=== PATIENT | female | born 2000 | race Caucasian/White ===

== ENCOUNTER → 2022-05-12 01:51 | Observation (INO) ==
[2022-05-12 01:12] LABS: Basophils % 0.4 %; Eosinophils # 0.1 K/mcL (0.0-0.6); Eosinophils % 0.9 %; Hematocrit 35.9 % (35.3-44.9); Hemoglobin 12.4 g/dL (11.5-15.4); Immature Granulocytes % 0.8 % (0-4); Lymphocytes # 1.5 K/mcL (0.6-4.6); Lymphocytes % 14.4 %; Mean Corpuscular HGB Conc 34.5 g/dL (31.6-35.5); Mean Corpuscular Hemoglobin 32.7 pg (28.0-33.3); Mean Corpuscular Volume 94.7 fL (83.0-100.0); Mean Platelet Volume 11.6 fL (9.4-12.4); Monocytes # 0.8 K/mcL (0.0-1.3); Monocytes % 8.1 %; Neutrophils # 7.7 K/mcL (1.6-8.9); Platelet Count 208 K/mcL (140-400); Red Blood Count 3.79 M/mcL (3.82-4.97); Red Cell Distribution Width 12.1 % (11.5-14.5); Segmented Neutrophils % 75.4 %; White Blood Count 10.2 K/mcL (4.3-11.1)
[2022-05-12 01:27] LABS: Protein/Creatinine Ratio,Urine 0.19 mg/mg (0.00-0.20)
[2022-05-12 01:35] LABS: Alanine Aminotransferase 8 Units/L (7-52); Aspartate Amino Transferase 12 Units/L (13-39); Blood Urea Nitrogen 7 mg/dL (6-20); Lactate Dehydrogenase 116 Units/L (140-271); Uric Acid 5.3 mg/dL (2.3-7.6)
[2022-05-12 01:49] LABS: BUN/Creatinine Ratio 11 (6-26)
== END | disposition home or self-care (01) ==
LOC: 1NENULAB
PROVIDERS: ADMIT Advanced Practice Midwife; ATTEND Advanced Practice Midwife

== ENCOUNTER 2022-05-18 06:00 | Inpatient (IN) ==
[2022-05-18] MEDS ORDERED: Azithromycin 500 MG in 0.9 % Sodium Chloride 250 ML IVPB PRN (06:07)
[2022-05-18] MEDS ORDERED: Ondansetron 4 MG/2 ML VIAL IVP PRN (06:07)
[2022-05-18] MEDS ORDERED: Metoclopramide 10 MG/2 ML VIAL IVP PRN (06:07)
[2022-05-18] MEDS ORDERED: Naloxone 0.4 MG/ML INJ IVP PRN (06:07)
[2022-05-18] MEDS ORDERED: *HR* Nalbuphine 10 MG/ML AMPUL IV PRN (06:07)
[2022-05-18] MEDS ORDERED: Famotidine 20 MG/2 ML VIAL IVP PRN (06:07)
[2022-05-18] MEDS ORDERED: Oxytocin 30 UNIT/503 ML BAG IVC SCH (06:15)
[2022-05-18 07:15] LABS: Basophils % 0.2 %; Eosinophils # 0.1 K/mcL (0.0-0.6); Eosinophils % 1.1 %; Hematocrit 34.7 % (35.3-44.9); Hemoglobin 12.2 g/dL (11.5-15.4); Immature Granulocytes % 0.5 % (0-4); Lymphocytes # 1.7 K/mcL (0.6-4.6); Lymphocytes % 16.3 %; Mean Corpuscular HGB Conc 35.2 g/dL (31.6-35.5); Mean Corpuscular Hemoglobin 33.6 pg (28.0-33.3); Mean Corpuscular Volume 95.6 fL (83.0-100.0); Mean Platelet Volume 12.2 fL (9.4-12.4); Monocytes # 0.7 K/mcL (0.0-1.3); Monocytes % 7.1 %; Neutrophils # 7.6 K/mcL (1.6-8.9); Platelet Count 218 K/mcL (140-400); Red Blood Count 3.63 M/mcL (3.82-4.97); Red Cell Distribution Width 12.1 % (11.5-14.5); Segmented Neutrophils % 74.8 %; White Blood Count 10.1 K/mcL (4.3-11.1)
[2022-05-18] MEDS ORDERED: EPHEDrine 50 MG/ML VIAL IVP PRN (07:42)
[2022-05-18] MEDS ORDERED: *HR* FentaNYL (PF) 100 MCG/2 ML VIAL EP ONE (07:42)
[2022-05-18] MEDS ORDERED: Ropivacaine/PF 0.2% 20 ML VIAL EP ONE (07:42)
[2022-05-18] MEDS ORDERED: Epidural Premix (fent/bupiv) 110 ML EP SCH (07:45)
[2022-05-18] MEDS: Ringers Solution, Lactated 1,000 ML IVC SCH ×2 (07:47→09:09)
[2022-05-18] MEDS ORDERED: Ropivacaine/PF 0.2% 20 ML VIAL ONE (08:11)
[2022-05-18] MEDS ORDERED: *HR* FentaNYL (PF) 100 MCG/2 ML VIAL ONE (08:11)
[2022-05-18] MEDS ORDERED: Nicotine 21 MG PATCH.TD24 TD SCH (09:00)
[2022-05-18 12:06] LABS: Amphetamine Screen,Urine Negative ng/mL (Cutoff=1000); Barbiturate Screen,Urine Negative ng/mL (Cutoff=200)
[2022-05-18 12:07] LABS: Benzodiazepines Screen,Urine Negative ng/mL (Cutoff=300); Cannabinoid Screen,Urine Positive ng/mL (Cutoff = 50); Cocaine Screen,Urine Negative ng/mL (Cutoff= 300); Opiate Screen,Urine Negative ng/mL (Cutoff=300); Phencyclidine Screen,Urine Negative ng/mL (Cutoff=25)
[2022-05-18] MEDS ORDERED: OXYTOCIN/RINGERS LACTATE 10 UNIT/166.6 ML BAG IVC ONE (18:17)
[2022-05-18] MEDS ORDERED: Lanolin 7 G OINT...G. TP PRN (18:17)
[2022-05-18] MEDS ORDERED: hydrOXYzine pamoate 25 MG CAPSULE PO PRN (18:17)
[2022-05-18] MEDS ORDERED: Ondansetron ODT 4 MG TAB.RAPDIS SL PRN (18:17)
[2022-05-18] MEDS ORDERED: Benzocaine/Menthol 56 GM AEROSOL SPRAY TP PRN (18:17)
[2022-05-18] MEDS ORDERED: Measles/Mumps/Rubella Vacc 0.5 ML VIAL SQ PRN (18:17)
[2022-05-18] MEDS ORDERED: Rho Immune Globulin 1,500 UNIT SYRINGE IM PRN (18:17)
[2022-05-18] MEDS: Acetaminophen 325 MG TABLET PO SCH (18:34)
[2022-05-18] MEDS: *HR* Buprenorphine HCl 8 MG TAB.SUBL SL SCH (20:48)
[2022-05-18] MEDS: Ibuprofen 600 MG TABLET PO SCH (20:49)
[2022-05-18] MEDS: traZODone 50 MG TABLET PO SCH (20:53)
[2022-05-19] MEDS: Nicotine 21 MG PATCH.TD24 TD SCH ×2 (00:49→21:26)
[2022-05-19] MEDS: Ibuprofen 600 MG TABLET PO SCH ×3 (03:54→21:26)
[2022-05-19] MEDS: Acetaminophen 325 MG TABLET PO SCH ×2 (03:55→18:02)
[2022-05-19 04:07] LABS: Basophils % 0.2 %; Eosinophils # 0.1 K/mcL (0.0-0.6); Eosinophils % 0.5 %; Hematocrit 26.5 % (35.3-44.9); Immature Granulocytes % 0.6 % (0-4); Lymphocytes # 1.7 K/mcL (0.6-4.6); Lymphocytes % 12.5 %; Mean Corpuscular HGB Conc 35.1 g/dL (31.6-35.5); Mean Corpuscular Hemoglobin 33.6 pg (28.0-33.3); Mean Corpuscular Volume 95.7 fL (83.0-100.0); Monocytes # 1.1 K/mcL (0.0-1.3); Neutrophils # 10.4 K/mcL (1.6-8.9); Platelet Count 149 K/mcL (140-400); Red Blood Count 2.77 M/mcL (3.82-4.97); Red Cell Distribution Width 11.9 % (11.5-14.5); Segmented Neutrophils % 78.2 %; White Blood Count 13.4 K/mcL (4.3-11.1)
[2022-05-19 04:12] LABS: Hemoglobin 9.3 g/dL (11.5-15.4)
[2022-05-19] MEDS: Prenatal Vit/FA 1 EACH TABLET PO SCH (08:42)
[2022-05-19] MEDS ORDERED: *HR* Buprenorphine HCl 8 MG TAB.SUBL SL SCH (09:00)
[2022-05-19] MEDS ORDERED: NON-FORMULARY MEDICATION 1 EACH EACH (Prenatal Caplet 1 TAB) PO SCH (09:00)
[2022-05-19] MEDS: *HR* Buprenorphine HCl 8 MG TAB.SUBL SL SCH (18:02)
[2022-05-19] MEDS: traZODone 50 MG TABLET PO SCH (21:26)
[2022-05-20] MEDS: Ibuprofen 600 MG TABLET PO SCH ×2 (05:06→12:13)
[2022-05-20] MEDS: Acetaminophen 325 MG TABLET PO SCH ×2 (05:06→12:12)
[2022-05-20 07:02] VITALS: BP 100/56; PULSE 85; TEMP 98; O2SAT 94
[2022-05-20] MEDS: Prenatal Vit/FA 1 EACH TABLET PO SCH (08:06)
[2022-05-20] MEDS ORDERED: Lidocaine -MPF 1% 2 ML VIAL ID ONE (10:51)
[2022-05-20] MEDS ORDERED: Etonogestrel 68 MG IMPLANT IL ONE (10:51)
[2022-05-20] MEDS ORDERED: Lidocaine -MPF 1% 5 ML AMPUL ID ONE (12:00)
== END 2022-05-20 13:34 | disposition home or self-care (01) | DRG 806 ==
LOC: 1NENULAB 06:01 → 1NENUOBS 18:18
PROVIDERS: ADMIT Student in an Organized Health Care Education/Training Program; ATTEND Student in an Organized Health Care Education/Training Program